=== PATIENT | female | born 1945 | race Caucasian/White ===

== ENCOUNTER → 2016-09-25 | Outpatient (CLI) | payer MEDICARE ==
[2016-09-25 10:22] LABS: ALANINE AMINOTRANSFERASE 142 U/L (9-52); ALBUMIN 4.2 g/dL (3.5-5.0); ALKALINE PHOSPHATASE 135 U/L (38-126); ANION GAP 10 (5-19); ASPARTATE AMINO TRANSFERASE 197 U/L (14-36); BILIRUBIN,TOTAL 0.8 mg/dL (0.2-1.3); BLOOD UREA NITROGEN 26 mg/dL (7-20); CALCIUM 9.8 mg/dL (8.4-10.2); CARBON DIOXIDE 24 mmol/L (22-30); CHLORIDE 106 mmol/L (98-107); CHOLESTEROL 119.26 mg/dL (0-200); CREATININE RESULT 1.02 mg/dL (0.52-1.25); Direct HDL 23 mg/dL (>40); GLUCOSE 110 mg/dL (75-110); POTASSIUM 5.3 mmol/L (3.6-5.0); SODIUM 139.7 mmol/L (137-145); TOTAL PROTEIN 10.2 g/dL (6.3-8.2); TRIGLYCERIDES 111 mg/dL (<150)
[2016-09-25 10:32] LABS: DIRECT LDL 44 mg/dL (<100)
== END ==
LOC: OD 08:51
PROVIDERS: ATTEND Internal Medicine Cardiovascular Disease
DX: I25.119 Atherosclerotic heart disease of native coronary artery with unspecified angina pectoris (principal); Z79.899 Other long term (current) drug therapy
CPT/HCPCS: 36415; 80048; 80061; 80076

== ENCOUNTER → 2016-11-11 | Outpatient (CLI) | payer MEDICARE ==
[2016-11-11 10:14] LABS: ALANINE AMINOTRANSFERASE 69 U/L (9-52); ALBUMIN 4.1 g/dL (3.5-5.0); ALKALINE PHOSPHATASE 97 U/L (38-126); ANION GAP 14 (5-19); ASPARTATE AMINO TRANSFERASE 94 U/L (14-36); BILIRUBIN,DIRECT 0.3 mg/dL (0.0-0.4); BILIRUBIN,TOTAL 0.6 mg/dL (0.2-1.3); BLOOD UREA NITROGEN 25 mg/dL (7-20); CALCIUM 9.8 mg/dL (8.4-10.2); CARBON DIOXIDE 24 mmol/L (22-30); CHLORIDE 106 mmol/L (98-107); CHOLESTEROL 209.48 mg/dL (0-200); CREATININE RESULT 0.94 mg/dL (0.52-1.25); Direct HDL 33 mg/dL (>40); GLUCOSE 104 mg/dL (75-110); SODIUM 143.6 mmol/L (137-145); TOTAL PROTEIN 9.7 g/dL (6.3-8.2); TRIGLYCERIDES 112 mg/dL (<150)
[2016-11-11 10:25] LABS: DIRECT LDL 116 mg/dL (<100)
== END ==
LOC: OD 08:40
PROVIDERS: ATTEND Internal Medicine Cardiovascular Disease
DX: E87.5 Hyperkalemia (principal); E78.2 Mixed hyperlipidemia; R94.5 Abnormal results of liver function studies
CPT/HCPCS: 36415; 80048; 80061; 80076

== ENCOUNTER → 2017-01-31 | Outpatient (CLI) | payer MEDICARE ==
[2017-01-31 09:11] LABS: ALANINE AMINOTRANSFERASE 44 U/L (9-52); ALBUMIN 4.5 g/dL (3.5-5.0); ALKALINE PHOSPHATASE 83 U/L (38-126); ASPARTATE AMINO TRANSFERASE 65 U/L (14-36); BILIRUBIN,DIRECT 0.4 mg/dL (0.0-0.4); BILIRUBIN,TOTAL 0.7 mg/dL (0.2-1.3); CHOLESTEROL 238.78 mg/dL (0-200); Direct HDL 40 mg/dL (>40); TOTAL PROTEIN 10.1 g/dL (6.3-8.2); TRIGLYCERIDES 163 mg/dL (<150)
[2017-01-31 09:22] LABS: DIRECT LDL 142 mg/dL (<100)
[2017-01-31 09:26] LABS: VLDL CHOLESTEROL 32.6 mg/dL (10-31)
== END ==
LOC: OD 08:23
PROVIDERS: ATTEND Internal Medicine Cardiovascular Disease
DX: R94.5 Abnormal results of liver function studies (principal); E78.2 Mixed hyperlipidemia
CPT/HCPCS: 36415; 80061; 80076

== ENCOUNTER → 2017-05-02 | Outpatient (CLI) | payer MEDICARE ==
[2017-05-02 11:26] LABS: ALANINE AMINOTRANSFERASE 45 U/L (9-52); ALBUMIN 4.4 g/dL (3.5-5.0); ALKALINE PHOSPHATASE 91 U/L (38-126); ANION GAP 14 (5-19); ASPARTATE AMINO TRANSFERASE 64 U/L (14-36); BILIRUBIN,DIRECT 0.4 mg/dL (0.0-0.4); BILIRUBIN,TOTAL 0.6 mg/dL (0.2-1.3); BLOOD UREA NITROGEN 26 mg/dL (7-20); CALCIUM 9.9 mg/dL (8.4-10.2); CARBON DIOXIDE 24 mmol/L (22-30); CHLORIDE 105 mmol/L (98-107); CREATININE RESULT 1.03 mg/dL (0.52-1.25); GLUCOSE 102 mg/dL (75-110); SODIUM 142.8 mmol/L (137-145); TOTAL PROTEIN 9.5 g/dL (6.3-8.2)
== END ==
LOC: OD 09:31
PROVIDERS: ATTEND Internal Medicine Cardiovascular Disease
DX: E78.2 Mixed hyperlipidemia (principal); R94.5 Abnormal results of liver function studies
CPT/HCPCS: 36415; 80048; 80076

== ENCOUNTER → 2017-06-03 | Outpatient (CLI) | payer MEDICARE ==
[2017-06-03 10:22] LABS: ALANINE AMINOTRANSFERASE 47 U/L (9-52); ALBUMIN 4.7 g/dL (3.5-5.0); ALKALINE PHOSPHATASE 72 U/L (38-126); ASPARTATE AMINO TRANSFERASE 47 U/L (14-36); BILIRUBIN,DIRECT 0.6 mg/dL (0.0-0.4); BILIRUBIN,TOTAL 0.7 mg/dL (0.2-1.3); CHOLESTEROL 151.79 mg/dL (0-200); Direct HDL 46 mg/dL (>40); TOTAL PROTEIN 9.3 g/dL (6.3-8.2); TRIGLYCERIDES 100 mg/dL (<150)
[2017-06-03 10:33] LABS: DIRECT LDL 68 mg/dL (<100)
== END ==
LOC: OD 09:13
PROVIDERS: ATTEND Internal Medicine Cardiovascular Disease
DX: E78.2 Mixed hyperlipidemia (principal); R94.5 Abnormal results of liver function studies
CPT/HCPCS: 36415; 80061; 80076

== ENCOUNTER → 2017-08-20 | Outpatient (CLI) | payer MEDICARE ==
[2017-08-20 10:31] LABS: ALANINE AMINOTRANSFERASE 40 U/L (9-52); ALBUMIN 4.6 g/dL (3.5-5.0); ALKALINE PHOSPHATASE 87 U/L (38-126); ASPARTATE AMINO TRANSFERASE 56 U/L (14-36); BILIRUBIN,DIRECT 0.2 mg/dL (0.0-0.4); BILIRUBIN,TOTAL 0.4 mg/dL (0.2-1.3); CHOLESTEROL 131.59 mg/dL (0-200); TOTAL PROTEIN 8.4 g/dL (6.3-8.2); TRIGLYCERIDES 94 mg/dL (<150)
[2017-08-20 10:42] LABS: DIRECT LDL 56 mg/dL (<100)
== END ==
LOC: OD 09:23
PROVIDERS: ATTEND Internal Medicine Cardiovascular Disease
DX: R94.5 Abnormal results of liver function studies (principal); E78.2 Mixed hyperlipidemia; I25.119 Atherosclerotic heart disease of native coronary artery with unspecified angina pectoris
CPT/HCPCS: 36415; 80061; 80076

== ENCOUNTER → 2017-12-09 | Outpatient (CLI) | payer MEDICARE ==
[2017-12-09 10:32] LABS: ANION GAP 13 (5-19); BLOOD UREA NITROGEN 33 mg/dL (7-20); CALCIUM 10.1 mg/dL (8.4-10.2); CARBON DIOXIDE 25 mmol/L (22-30); CHLORIDE 107 mmol/L (98-107); GLUCOSE 101 mg/dL (75-110); POTASSIUM 5.6 mmol/L (3.6-5.0)
== END ==
LOC: OD 09:01
PROVIDERS: ATTEND Internal Medicine Cardiovascular Disease
DX: E87.5 Hyperkalemia (principal); I10 Essential (primary) hypertension; Z79.899 Other long term (current) drug therapy
CPT/HCPCS: 36415; 80048; 83735

== ENCOUNTER → 2018-01-01 | Outpatient (CLI) | payer MEDICARE ==
[2018-01-01 09:56] LABS: ALANINE AMINOTRANSFERASE 37 U/L (9-52); ALBUMIN 4.4 g/dL (3.5-5.0); ALKALINE PHOSPHATASE 80 U/L (38-126); ANION GAP 13 (5-19); ASPARTATE AMINO TRANSFERASE 52 U/L (14-36); BILIRUBIN,DIRECT 0.4 mg/dL (0.0-0.4); BILIRUBIN,TOTAL 0.6 mg/dL (0.2-1.3); BLOOD UREA NITROGEN 35 mg/dL (7-20); CALCIUM 9.9 mg/dL (8.4-10.2); CARBON DIOXIDE 26 mmol/L (22-30); CHLORIDE 105 mmol/L (98-107); CHOLESTEROL 124.81 mg/dL (0-200); GLUCOSE 100 mg/dL (75-110); POTASSIUM 4.4 mmol/L (3.6-5.0); SODIUM 143.9 mmol/L (137-145); TRIGLYCERIDES 96 mg/dL (<150)
[2018-01-01 10:07] LABS: DIRECT LDL 49 mg/dL (<100)
== END ==
LOC: OD 08:28
PROVIDERS: ATTEND Internal Medicine Cardiovascular Disease
DX: E87.5 Hyperkalemia (principal); E78.2 Mixed hyperlipidemia; Z79.899 Other long term (current) drug therapy
CPT/HCPCS: 36415; 80048; 80061; 80076

== ENCOUNTER → 2018-02-05 | Outpatient (CLI) | payer MEDICARE ==
[2018-02-05 09:42] LABS: ANION GAP 13 (5-19); BLOOD UREA NITROGEN 30 mg/dL (7-20); CALCIUM 9.8 mg/dL (8.4-10.2); CARBON DIOXIDE 24 mmol/L (22-30); CHLORIDE 106 mmol/L (98-107); GLUCOSE 100 mg/dL (75-110); POTASSIUM 4.6 mmol/L (3.6-5.0)
== END ==
LOC: OD 08:00
PROVIDERS: ATTEND Internal Medicine Cardiovascular Disease
DX: I10 Essential (primary) hypertension (principal); Z79.899 Other long term (current) drug therapy
CPT/HCPCS: 36415; 80048

== ENCOUNTER → 2018-03-06 | Outpatient (CLI) | payer MEDICARE ==
[2018-03-06 09:16] LABS: ANION GAP 14 (5-19); BLOOD UREA NITROGEN 38 mg/dL (7-20); CALCIUM 9.6 mg/dL (8.4-10.2); CARBON DIOXIDE 24 mmol/L (22-30); CHLORIDE 104 mmol/L (98-107); GLUCOSE 98 mg/dL (75-110); POTASSIUM 4.9 mmol/L (3.6-5.0)
== END ==
LOC: OD 08:11
PROVIDERS: ATTEND Internal Medicine Cardiovascular Disease
DX: I10 Essential (primary) hypertension (principal)
CPT/HCPCS: 36415; 80048

== ENCOUNTER → 2018-06-10 | Outpatient (CLI) | payer MEDICARE ==
[2018-06-10 09:55] LABS: ALANINE AMINOTRANSFERASE 31 U/L (9-52); ALBUMIN 4.3 g/dL (3.5-5.0); ALKALINE PHOSPHATASE 90 U/L (38-126); ANION GAP 10 (5-19); ASPARTATE AMINO TRANSFERASE 48 U/L (14-36); BILIRUBIN,DIRECT 0.4 mg/dL (0.0-0.4); BILIRUBIN,TOTAL 0.6 mg/dL (0.2-1.3); BLOOD UREA NITROGEN 29 mg/dL (7-20); CALCIUM 10.2 mg/dL (8.4-10.2); CARBON DIOXIDE 29 mmol/L (22-30); CHLORIDE 104 mmol/L (98-107); CHOLESTEROL 127.77 mg/dL (0-200); GLUCOSE 116 mg/dL (75-110); POTASSIUM 4.9 mmol/L (3.6-5.0); SODIUM 143.2 mmol/L (137-145); TOTAL PROTEIN 9.2 g/dL (6.3-8.2); TRIGLYCERIDES 104 mg/dL (<150)
[2018-06-10 10:06] LABS: DIRECT LDL 59 mg/dL (<100)
== END ==
LOC: OD 08:36
PROVIDERS: ATTEND Internal Medicine Cardiovascular Disease
DX: I10 Essential (primary) hypertension (principal); Z79.899 Other long term (current) drug therapy; R94.5 Abnormal results of liver function studies; E78.2 Mixed hyperlipidemia
CPT/HCPCS: 36415; 80048; 80061; 80076

== ENCOUNTER → 2018-09-08 | Outpatient (CLI) | payer MEDICARE ==
[2018-09-08 10:02] LABS: BLOOD UREA NITROGEN 30 mg/dL (7-20); CALCIUM 10.2 mg/dL (8.4-10.2); GLUCOSE 109 mg/dL (75-110)
[2018-09-08 10:03] LABS: ALANINE AMINOTRANSFERASE 35 U/L (9-52); ALBUMIN 4.3 g/dL (3.5-5.0); ALKALINE PHOSPHATASE 88 U/L (38-126); ANION GAP 9 (5-19); ASPARTATE AMINO TRANSFERASE 49 U/L (14-36); BILIRUBIN,DIRECT 0.2 mg/dL (0.0-0.4); BILIRUBIN,TOTAL 0.4 mg/dL (0.2-1.3); CARBON DIOXIDE 30 mmol/L (22-30); CHLORIDE 103 mmol/L (98-107); CHOLESTEROL 126.26 mg/dL (0-200); POTASSIUM 5.3 mmol/L (3.6-5.0); TOTAL PROTEIN 8.4 g/dL (6.3-8.2); TRIGLYCERIDES 104 mg/dL (<150)
[2018-09-08 10:13] LABS: DIRECT LDL 55 mg/dL (<100)
== END ==
LOC: OD 08:00
PROVIDERS: ATTEND Internal Medicine Cardiovascular Disease
DX: E78.2 Mixed hyperlipidemia (principal); I10 Essential (primary) hypertension; R73.01 Impaired fasting glucose; Z79.899 Other long term (current) drug therapy
CPT/HCPCS: 36415; 80048; 80061; 80076; 83036

== ENCOUNTER → 2018-10-15 | Outpatient (CLI) | payer MEDICARE ==
[2018-10-15 08:44] LABS: ANION GAP 11 (5-19); BLOOD UREA NITROGEN 32 mg/dL (7-20); CALCIUM 9.5 mg/dL (8.4-10.2); CARBON DIOXIDE 30 mmol/L (22-30); CHLORIDE 94 mmol/L (98-107); GLUCOSE 108 mg/dL (75-110); SODIUM 135.2 mmol/L (137-145)
== END ==
LOC: LAB 07:43
PROVIDERS: ATTEND Internal Medicine Cardiovascular Disease
DX: N18.3 Chronic kidney disease, stage 3 (moderate) (principal)
CPT/HCPCS: 36415; 80048

== ENCOUNTER → 2019-04-14 | Outpatient (CLI) | payer MEDICARE ==
[2019-04-14 10:12] LABS: ALBUMIN 4.4 g/dL (3.5-5.0); ALKALINE PHOSPHATASE 106 U/L (38-126); ANION GAP 11 (5-19); ASPARTATE AMINO TRANSFERASE 68 U/L (14-36); BILIRUBIN,DIRECT 0.3 mg/dL (0.0-0.4); BILIRUBIN,TOTAL 0.5 mg/dL (0.2-1.3); BLOOD UREA NITROGEN 36 mg/dL (7-20); CALCIUM 9.9 mg/dL (8.4-10.2); CARBON DIOXIDE 27 mmol/L (22-30); CHLORIDE 102 mmol/L (98-107); CHOLESTEROL 138.76 mg/dL (0-200); GLUCOSE 97 mg/dL (75-110); TOTAL PROTEIN 8.9 g/dL (6.3-8.2); TRIGLYCERIDES 126 mg/dL (<150)
[2019-04-14 10:23] LABS: DIRECT LDL 65 mg/dL (<100)
== END ==
LOC: OD 08:13
PROVIDERS: ATTEND Physician Assistant
DX: I10 Essential (primary) hypertension (principal); E78.2 Mixed hyperlipidemia; Z79.899 Other long term (current) drug therapy
CPT/HCPCS: 36415; 80048; 80061; 80076

== ENCOUNTER → 2019-05-19 | Outpatient (CLI) | payer MEDICARE ==
[2019-05-19 09:42] LABS: ANION GAP 13 (5-19); BLOOD UREA NITROGEN 25 mg/dL (7-20); CALCIUM 10.2 mg/dL (8.4-10.2); CARBON DIOXIDE 24 mmol/L (22-30); CHLORIDE 105 mmol/L (98-107); GLUCOSE 100 mg/dL (75-110); POTASSIUM 4.2 mmol/L (3.6-5.0)
== END ==
LOC: OD 08:31
PROVIDERS: ATTEND Internal Medicine Cardiovascular Disease
DX: E87.5 Hyperkalemia (principal)
CPT/HCPCS: 36415; 80048

== ENCOUNTER → 2019-08-18 | Outpatient (CLI) | payer MEDICARE ==
[2019-08-18 09:54] LABS: ALBUMIN 4.4 g/dL (3.5-5.0); ALKALINE PHOSPHATASE 101 U/L (38-126); ANION GAP 10 (5-19); ASPARTATE AMINO TRANSFERASE 63 U/L (14-36); BILIRUBIN,DIRECT 0.1 mg/dL (0.0-0.4); BILIRUBIN,TOTAL 0.5 mg/dL (0.2-1.3); BLOOD UREA NITROGEN 31 mg/dL (7-20); CALCIUM 9.7 mg/dL (8.4-10.2); CARBON DIOXIDE 26 mmol/L (22-30); CHLORIDE 104 mmol/L (98-107); CHOLESTEROL 139.53 mg/dL (0-200); GLUCOSE 99 mg/dL (75-110); POTASSIUM 4.1 mmol/L (3.6-5.0); TOTAL PROTEIN 9.1 g/dL (6.3-8.2); TRIGLYCERIDES 80 mg/dL (<150)
[2019-08-18 10:05] LABS: DIRECT LDL 63 mg/dL (<100)
== END ==
LOC: OD 08:32
PROVIDERS: ATTEND Internal Medicine Cardiovascular Disease
DX: I10 Essential (primary) hypertension (principal); E78.2 Mixed hyperlipidemia; Z79.899 Other long term (current) drug therapy
CPT/HCPCS: 36415; 80048; 80061; 80076

== ENCOUNTER → 2019-10-08 | Outpatient (CLI) | payer MEDICARE ==
[2019-10-08 09:21] LABS: ALBUMIN 4.6 g/dL (3.5-5.0); ALKALINE PHOSPHATASE 69 U/L (38-126); ANION GAP 11 (5-19); ASPARTATE AMINO TRANSFERASE 51 U/L (14-36); BILIRUBIN,DIRECT 0.3 mg/dL (0.0-0.4); BILIRUBIN,TOTAL 0.5 mg/dL (0.2-1.3); BLOOD UREA NITROGEN 24 mg/dL (7-20); CALCIUM 9.8 mg/dL (8.4-10.2); CARBON DIOXIDE 25 mmol/L (22-30); CHLORIDE 104 mmol/L (98-107); CHOLESTEROL 129.31 mg/dL (0-200); GLUCOSE 97 mg/dL (75-110); POTASSIUM 4.5 mmol/L (3.6-5.0); TOTAL PROTEIN 8.8 g/dL (6.3-8.2); TRIGLYCERIDES 97 mg/dL (<150)
[2019-10-08 09:32] LABS: DIRECT LDL 44 mg/dL (<100)
== END ==
LOC: OD 07:49
PROVIDERS: ATTEND Internal Medicine Cardiovascular Disease
DX: E78.2 Mixed hyperlipidemia (principal); I10 Essential (primary) hypertension; Z79.899 Other long term (current) drug therapy
CPT/HCPCS: 36415; 80048; 80061; 80076

== ENCOUNTER → 2020-01-11 | Outpatient (CLI) | payer MEDICARE ==
[2020-01-11 09:50] LABS: ALBUMIN 4.5 g/dL (3.5-5.0); ALKALINE PHOSPHATASE 93 U/L (38-126); ANION GAP 9 (5-19); ASPARTATE AMINO TRANSFERASE 91 U/L (14-36); BILIRUBIN,TOTAL 0.6 mg/dL (0.2-1.3); BLOOD UREA NITROGEN 31 mg/dL (7-20); CALCIUM 9.9 mg/dL (8.4-10.2); CARBON DIOXIDE 25 mmol/L (22-30); CHLORIDE 105 mmol/L (98-107); CHOLESTEROL 109.52 mg/dL (0-200); GLUCOSE 107 mg/dL (75-110); POTASSIUM 4.8 mmol/L (3.6-5.0); TOTAL PROTEIN 9.4 g/dL (6.3-8.2); TRIGLYCERIDES 111 mg/dL (<150)
[2020-01-11 10:01] LABS: DIRECT LDL 41 mg/dL (<100)
== END ==
LOC: OD 08:22
PROVIDERS: ATTEND Internal Medicine Cardiovascular Disease
DX: E78.2 Mixed hyperlipidemia (principal); R94.5 Abnormal results of liver function studies; I10 Essential (primary) hypertension; Z79.899 Other long term (current) drug therapy
CPT/HCPCS: 36415; 80048; 80061; 80076

== ENCOUNTER → 2020-02-01 | Outpatient (CLI) | payer MEDICARE ==
[2020-02-01 10:58] LABS: HEMATOCRIT 40.4 % (36.0-47.0); HEMOGLOBIN 13.7 g/dL (12.0-15.5); MEAN CORPUSCULAR HGB CONC 33.9 g/dL (32.0-36.0); MEAN CORPUSCULAR VOLUME 89 fl (80-97); PLATELET COUNT 160 10^3/uL (150-450); RED BLOOD COUNT 4.56 10^6/uL (3.72-5.28); RED CELL DISTRIBUTION WIDTH 13.8 % (11.5-14.0); WHITE BLOOD COUNT 6.7 10^3/uL (4.0-10.5)
[2020-02-01 11:20] LABS: ALBUMIN 4.6 g/dL (3.5-5.0); ALKALINE PHOSPHATASE 99 U/L (38-126); ASPARTATE AMINO TRANSFERASE 87 U/L (14-36); BILIRUBIN,DIRECT 0.2 mg/dL (0.0-0.4); BILIRUBIN,TOTAL 0.6 mg/dL (0.2-1.3); TOTAL PROTEIN 9.4 g/dL (6.3-8.2)
[2020-02-02 11:02] LABS: HEPATITIS B SURFACE AB QUAL Non Reactive (.)
[2020-02-02 14:33] LABS: MITOCHONDRIAL (M2) ANTIBODY <20.0 Units (0.0-20.0)
[2020-02-02 15:26] LABS: ACTIN (SMOOTH MUSCLE) ANTIBODY 92 Units (0-19)
== END ==
LOC: OD 10:01
PROVIDERS: ATTEND Physician Assistant
DX: R74.8 Abnormal levels of other serum enzymes (principal); Z11.59 Encounter for screening for other viral diseases
CPT/HCPCS: 36415; 80076; 85027; 86038; 86235; 86256; 86706; 86709; 86803; 86804; 87340

== ENCOUNTER → 2020-02-02 | Outpatient (CLI) | payer MEDICARE ==
--- NOTE | 2020-02-02 09:40 | RADIOLOGY REPORT (SQ) ---
EXAM DESCRIPTION: U/S ABDOMEN LIMITED W/O DOP IMAGES COMPLETED DATE/TIME: 02/02/2020 9:28 am REASON FOR STUDY: ABN NORMAL LEVELS OF OTHER SERUM ENZYMES R74.8 ABNORMAL LEVELS OF OTHER SERUM ENZ YMES COMPARISON: None. TECHNIQUE: Dynamic and static grayscale images acquired of the abdomen and recorded on PACS. Additio nal selected color Doppler and spectral images recorded. LIMITATIONS: None. FINDINGS: PANCREAS: No masses. Visualized pancreatic duct normal caliber. LIVER: No masses. Echotexture normal. LIVER VASCULATURE: Normal directional flow of the main portal vein and hepatic veins. GALLBLADDER: Mild gallbladder distention. No stones or wall thickening. ULTRASOUND-DETECTED MEDINA'S SIGN: Negative. INTRAHEPATIC DUCTS AND COMMON DUCT: No intrahepatic biliary ductal dilatation. The common bile duct is mildly dilated at 7.2 mm. AORTA: No aneurysm. RIGHT KIDNEY: Normal size. Normal echogenicity. No solid or suspicious masses. No hydronephrosis. No calcifications. Small cyst in the superior pole measured 2.3 x 2.2 x 1.5 cm. PERITONEAL AND RIGHT PLEURAL SPACE: No ascites or effusions. OTHER: No other significant findings. IMPRESSION: Mild gallbladder distention. Common bile duct is measured at 7.2 mm. TECHNICAL DOCUMENTATION: JOB ID: [id number] 2010 [employer]- All Rights Reserved Reading location - IP/workstation name: [email or web address]
== END ==
LOC: RAD 08:04
PROVIDERS: ATTEND Internal Medicine Gastroenterology
DX: R74.8 Abnormal levels of other serum enzymes (principal); N28.1 Cyst of kidney, acquired; K82.8 Other specified diseases of gallbladder
CPT/HCPCS: 76705

== ENCOUNTER → 2020-03-15 | Outpatient (CLI) | payer MEDICARE ==
[2020-03-16 14:37] LABS: ANTICHROMATIN AB 0.3 AI (0.0-0.9); CENTROMERE B AB <0.2 AI (0.0-0.9); JO-1 ANTIBODY (ANACOMP) <0.2 AI (0.0-0.9); SJOGREN'S ANTI-SS-B AB <0.2 AI (0.0-0.9); SJOGREN'S SS-A ANTIBODY <0.2 AI (0.0-0.9)
[2020-03-16 15:04] LABS: DNA DOUBLE STRAND ANTIBODY ANA 10 IU/mL (0-9)
== END ==
LOC: OD 11:19
PROVIDERS: ATTEND Physician Assistant
DX: R74.8 Abnormal levels of other serum enzymes (principal)
CPT/HCPCS: 36415; 86225; 86235

== ENCOUNTER → 2020-04-13 | Outpatient (CLI) | payer MEDICARE ==
--- NOTE | 2020-04-13 15:49 | RADIOLOGY REPORT (SQ) ---
EXAM DESCRIPTION: ARTERIAL LOWER EXTREM BILAT IMAGES COMPLETED DATE/TIME: 04/13/2020 11:54 am REASON FOR STUDY: ATHEROSCEROSIS I70.213 ATHSCL [place] ARTERIES OF EXTRM W INTRMT TIA[place], BI L COMPARISON: None. TECHNIQUE: Dynamic and static ball scale and color images acquired of the lower extremity arteries. Additional selected spectral images recorded. ABIs recorded. LIMITATIONS: None. FINDINGS: RIGHT LEG: ABIS: Normal, over 1.0. INFLOW ARTERIES: Normal, no obstruction evident. FEMORAL ARTERIES:Multiphasic waveforms. Normal, no velocity elevation to suggest focal stenosis. Norm al color Doppler evaluation. No aneurysm. POPLITEAL ARTERY:Multiphasic waveforms. Normal, no velocity elevation to suggest focal stenosis. Norm al color Doppler evaluation. No aneurysm. PATENT TIBIOPERONEAL TRUNK AND 3 VESSEL RUNOFF: Yes, normal vessels. TBI: Not performed. OTHER: No other significant finding. LEFT LEG: ABIS: Normal to minimal ischemia, measuring 9.4 to 1.0 INFLOW ARTERIES: Normal, no obstruction evident. FEMORAL ARTERIES:Multiphasic waveforms. Normal, no velocity elevation to suggest focal stenosis. Norm al color Doppler evaluation. No aneurysm. POPLITEAL ARTERY:Multiphasic waveforms. Normal, no velocity elevation to suggest focal stenosis. Norm al color Doppler evaluation. No aneurysm. PATENT TIBIOPERONEAL TRUNK AND 3 VESSEL RUNOFF: Yes, normal vessels. TBI: Not performed. OTHER: No other significant finding. IMPRESSION: Normal bilateral lower extremity Doppler evaluations with minimally diminished left lowe r extremity ZACHARY measuring 9.4 as measured at the posterior tibial artery (normal is 1.0 or greater). Normal right lower extremity ABIs. COMMENT: [facility] NORMAL: Greater than 1.0 MINIMAL DISEASE: 0.9 to 1.0 CLAUDICATION: 0.5 to 0.9 SEVERE ARTERIAL DISEASE: Less than 0.5 [facility] NORMAL: Greater than 1.0 (1.2 If Heavy Calcifications) NORMAL TO MILD ISCHEMIA: 0.8 to 1.0 MODERATE ISCHEMIA: 0.4 to 0.8 SEVERE ISCHEMIA: Less than 0.4 TECHNICAL DOCUMENTATION: JOB ID: [id number] 2010 [employer]- All Rights Reserved Reading location - IP/workstation name: [email or web address]
== END ==
LOC: SP 09:36
PROVIDERS: ATTEND Internal Medicine Cardiovascular Disease
DX: I70.213 Atherosclerosis of native arteries of extremities with intermittent claudication, bilateral legs (principal)
CPT/HCPCS: 93922; 93925

== ENCOUNTER → 2020-06-10 | Outpatient (CLI) | payer MEDICARE ==
[2020-06-10 10:26] LABS: ALBUMIN 4.4 g/dL (3.5-5.0); ALKALINE PHOSPHATASE 88 U/L (38-126); ASPARTATE AMINO TRANSFERASE 68 U/L (14-36); BILIRUBIN,DIRECT 0.3 mg/dL (0.0-0.4); BILIRUBIN,TOTAL 0.5 mg/dL (0.2-1.3); TOTAL PROTEIN 9.3 g/dL (6.3-8.2); TRIGLYCERIDES 190 mg/dL (<150)
[2020-06-10 10:37] LABS: DIRECT LDL 159 mg/dL (<100)
== END ==
LOC: OD 08:17
PROVIDERS: ATTEND Internal Medicine Cardiovascular Disease
DX: R94.5 Abnormal results of liver function studies (principal); E78.2 Mixed hyperlipidemia
CPT/HCPCS: 36415; 80061; 80076

== ENCOUNTER → 2020-07-26 | Outpatient (CLI) | payer MEDICARE ==
[2020-07-26 10:42] LABS: ALBUMIN 4.2 g/dL (3.5-5.0); ALKALINE PHOSPHATASE 114 U/L (38-126); ASPARTATE AMINO TRANSFERASE 117 U/L (14-36); BILIRUBIN,DIRECT 0.3 mg/dL (0.0-0.4); BILIRUBIN,TOTAL 0.5 mg/dL (0.2-1.3); TOTAL PROTEIN 9.6 g/dL (6.3-8.2)
== END ==
LOC: OD 09:33
PROVIDERS: ATTEND Physician Assistant
DX: R74.8 Abnormal levels of other serum enzymes (principal)
CPT/HCPCS: 36415; 80076